=== PATIENT | female | born 1975 | race Caucasian/White ===

== ENCOUNTER → 2018-05-29 06:43 | Outpatient (CLI) | payer OTHER | END | disposition home or self-care (01) | LOC: LAB 06:43 | DX: D64.0 Hereditary sideroblastic anemia (principal); D64.89 Other specified anemias; M25.50 Pain in unspecified joint; N39.0 Urinary tract infection, site not specified; I10 Essential (primary) hypertension; M06.4 Inflammatory polyarthropathy; E03.8 Other specified hypothyroidism; D50.8 Other iron deficiency anemias; D52.0 Dietary folate deficiency anemia; M19.90 Unspecified osteoarthritis, unspecified site; K29.00 Acute gastritis without bleeding; C50.819 Malignant neoplasm of overlapping sites of unspecified female breast; Z11.3 Encounter for screening for infections with a predominantly sexual mode of transmission; D39.10 Neoplasm of uncertain behavior of unspecified ovary; D41.8 Neoplasm of uncertain behavior of other specified urinary organs; D39.8 Neoplasm of uncertain behavior of other specified female genital organs; E11.65 Type 2 diabetes mellitus with hyperglycemia; Z79.899 Other long term (current) drug therapy; Z13.228 Encounter for screening for other metabolic disorders; Z01.89 Encounter for other specified special examinations; E63.8 Other specified nutritional deficiencies; E55.9 Vitamin D deficiency, unspecified; E78.89 Other lipoprotein metabolism disorders; R97.1 Elevated cancer antigen 125 [CA 125]; R97.8 Other abnormal tumor markers; Z12.11 Encounter for screening for malignant neoplasm of colon; D69.8 Other specified hemorrhagic conditions; J30.0 Vasomotor rhinitis; D27.9 Benign neoplasm of unspecified ovary; C25.9 Malignant neoplasm of pancreas, unspecified; J30.89 Other allergic rhinitis ==